=== PATIENT | female | born 1955 | race Caucasian/White ===

== ENCOUNTER 2021-01-15 16:45 | Emergency (ER) | payer OTHER ==
[~2021-01-15] VITALS: Ht 167.6 cm; Wt 81.0 kg
[2021-01-15 16:47] VITALS: BP 152/77
[2021-01-15 18:10] LABS: BASOPHILS % 0.8 % (0.0-2.0); EOSINOPHILS % 2.8 % (0.0-5.0); HEMATOCRIT. 28.9 % (36.0-48.0); HEMOGLOBIN. 8.9 g/dL (12.0-16.0); LYMPHOCYTES % 19.5 % (20.0-50.0); MEAN CORPUSCULAR HEMOGLOBIN 21.7 pg (28.0-32.0); MEAN CORPUSCULAR VOLUME 70.6 fL (81.0-99.0); MEAN PLATELET VOLUME 7.2 fl (7.4-10.4); MONOCYTES % 8.7 % (2.0-8.0); NEUTROPHILS % 68.2 % (40.0-76.0); PLATELET 682 x1000/uL (130-400)
[2021-01-15 18:16] LABS: CHLORIDE 111 mEq/L (98-107)
== END 2021-01-15 18:47 | disposition left against medical advice (07) ==
LOC: ER 16:45 → EDBD 16:45 → ER 18:47
DX: R07.89 Other chest pain (principal); F41.9 Anxiety disorder, unspecified; I10 Essential (primary) hypertension; E78.00 Pure hypercholesterolemia, unspecified; Z86.19 Personal history of other infectious and parasitic diseases
CPT/HCPCS: 36415; 80053; 84484; 85025; 93005; 99284